=== PATIENT | female | born 1985 ===

== ENCOUNTER 2017-11-14 06:05 | Day surgery (SDC) | payer OTHER ==
[2017-11-13 13:45] VITALS: BMI 30.2
[2017-11-14] MEDS ORDERED: Midazolam 2 MG/2 ML VIAL ONE (07:23)
[2017-11-14] MEDS ORDERED: Propofol 10 mg/ml Inj (20 ML) ONE (07:23)
[2017-11-14] MEDS ORDERED: ePHEDrine 50 mg/ml Inj ONE (07:27)
[2017-11-14] MEDS ORDERED: Phenylephrine 10 mg/ml Inj ONE (07:27)
[2017-11-14] MEDS ORDERED: ceFAZolin IV 1 gm in Dextrose 2 GM/100 ML BAG IVPB ONE (07:30)
[2017-11-14] MEDS ORDERED: Lidocaine/Epinephrine 1% 1:100000 10 ML IJ ONE (07:44)
[2017-11-14] MEDS: Lidocaine/Epinephrine 1% 1:100000 10 ML IJ ONE ×2 (08:03→08:19)
[2017-11-14] MEDS: Bupivacaine 0.25% 20 ML INJ IJ ONE ×2 (08:03→08:19)
[2017-11-14] MEDS ORDERED: Bupivacaine 0.25% 20 ML INJ IJ ONE (08:49)
[2017-11-14] MEDS ORDERED: Morphine 4 MG/ML VIAL ONE (09:24)
[2017-11-14] MEDS: HYDROmorphone 0.5 mg/0.5 ml ISec IVP PRN ×3 (09:40→10:59)
[2017-11-14] MEDS ORDERED: HYDROmorphone 0.5 mg/0.5 ml ISec ONE (09:43)
--- NOTE | 2017-11-14 10:16 | PCM.SURG1 ---
Surgeon's Initial Post Op Note - Surgeon's Notes Surgeon: Roxy Schafer MD Ranch Helper: NISHA Kulkarni Type of Anesthesia: General Endo Pre-Operative Diagnosis: Cholecystitis with Cholelithiasis Operative Findings: Acute on Chronic Cholecystitis. Cholelithiasis. Extensive postinfectious adhesions of omentum, duodenum and colon to Gallbladder. Post-Operative Diagnosis: Acute on Chronic Cholecystitis. Cholelithiasis. Extensive postinfectious adhesions of omentum, duodenum and colon to Gallbladder. Operation Performed: Robotic Cholecystectomy. Robotic Enterolysis and Lysis of adhesions. Lap B/L TAP block Specimen/Specimens Removed: Gallbladder Estimated Blood Loss: EBL {In ML}: 10 Blood Products Given: N/A Drains Used: No Drains Post-Op Condition: Good Date of Surgery/Procedure: 11/14/17 Time of Surgery/Procedure: 10:16
[2017-11-14] MEDS ORDERED: DiphenhydrAMINE 50 mg/ml Inj ONE (10:18)
[2017-11-14] MEDS ORDERED: DiphenhydrAMINE 50 mg/ml Inj IVP ONE (12:00)
[2017-11-14 12:20] VITALS: BP 105/70; PULSE 714; RESP 18; TEMP 977; O2SAT 100
--- NOTE | 2017-11-14 16:43 | OP ---
PROCEDURE DATE: 11/14/2017 PREOPERATIVE DIAGNOSES: Acute cholecystitis and cholelithiasis. POSTOPERATIVE DIAGNOSES: 1. [id number] cholecystitis. 2. Cholelithiasis. 3. Extensive postinfectious adhesions of omentum, colon and duodenum to the gallbladder. PROCEDURES DONE: 1. Robotic cholecystectomy. 2. Robotic extensive lysis of adhesion and enterolysis. 3. Laparoscopic bilateral TAP block placement. SURGEON: Adrián Schafer MD SPECIALTY SALES CONSULTANT: NISHA Kulkarni ANESTHESIA: General endotracheal tube anesthesia. ESTIMATED BLOOD LOSS: Around 10 mL. DRAINS: None. PATHOLOGY: The gallbladder was sent for the pathology. COMPLICATIONS: None. INTRAOPERATIVE FINDINGS: The patient had [id number] cholecystitis with extensive omental, duodenum and colonic adhesion to the gallbladder and the right upper quadrant and extensive lysis of adhesion was done. DESCRIPTION OF PROCEDURE: On intraoperative steps, this 31-year-old female was diagnosed with acute cholecystitis, cholelithiasis and the patient was consented for the laparoscopic-assisted robotic cholecystectomy possible open, brought to the OR, placed supine on operating table. After induction of the anesthesia, abdomen was prepped and draped in usual sterile fashion. A supraumbilical transverse incision was made after incising skin, subcutaneous tissue, and the fascia. The robotic camera port was placed. Pneumo was created. Another three 8-mm port was placed in the upper abdomen. The robot was brought in. Camera arm as well as arm one and arm two was docked. The patient had extensive omental, duodenal and colonic adhesion in the right upper quadrant. First extensive lysis of adhesion as well as enterolysis was done in order to retract the gallbladder cranially. The Calot's triangle dissection was done. Cystic duct and cystic artery was identified. Intraoperative Firefly was used. Critical view of the safety was identified and a top-down approach was done. After cystic duct and common bile duct junction was identified and then a cystic duct as well as cystic artery was clipped at three places cut in between two clips in the gallbladder and gallbladder was dissected free from the gallbladder fossa, taken in EndoCatch bag, taken out through the umbilical port site and sent off the table for the pathology. There was proper hemostasis in each and every part of the procedure. Now, the robotic instrument was taken out. Robot was undocked. Bilateral TAP block was given. The 30 mL of Marcaine was injected into the transverse abdominal muscles plain bilaterally and after that all the instrument was taken out, all the ports were taken out under vision. Pneumo was deflated. Umbilical port site was closed in two layer, the fascia with 0 Vicryl interrupted sutures, skin with a 4-0 Monocryl and dry sterile dressing was applied. The patient tolerated the procedure well. Counts of instrument and gauze were correct. There were no apparent complications. Adrián Schafer MD
== END 2017-11-14 13:18 | disposition home or self-care (01) ==
LOC: C.SDS 06:05
PROVIDERS: ATTEND Surgery Surgical Critical Care
DX: K80.00 Calculus of gallbladder with acute cholecystitis without obstruction (principal); K66.0 Peritoneal adhesions (postprocedural) (postinfection)
CPT/HCPCS: 47562; 88304; J0690; J1170; J1200; J1885; J2250; J2270; J2370; J2704; J3010; J7030